=== PATIENT | male | born 1970 | race Caucasian/White ===

== ENCOUNTER 2022-06-03 07:56 | Emergency (ER) | payer OTHER ==
[~2022-06-03] VITALS: Ht 195.6 cm; Wt 122.5 kg
[2022-06-03] MEDS ORDERED: LOSARTAN-HCTZ1 EAC3 PO (08:49)
[2022-06-03] MEDS ORDERED: Percocet 5-3251 EACH PO (09:43)
[2022-06-03] MEDS ORDERED: IBU800 MG PO (09:43)
== END 2022-06-03 10:13 | disposition home or self-care (01) ==
LOC: ER 07:56
DX: M25.512 Pain in left shoulder (principal); W01.0XXA Fall on same level from slipping, tripping and stumbling without subsequent striking against object, initial encounter
CPT/HCPCS: 73030; 96374; 96375; 99283-25; J1885; J3010